=== PATIENT | male | born 1935 | race Caucasian/White ===

== ENCOUNTER 2016-10-19 12:30 | Inpatient (IN) | payer MEDICARE, BC ==
[~2016-10-19] VITALS: Ht 181.6 cm; Wt 108.3 kg
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
--- NOTE | ~2016-10-19 | DS ---
PATIENT'S NAME: CHUY MCCLELLAN [facility] AGE: 81 Y [address] ROOM: [address] [address] LOCATION: [facility] [place] ADMIT DATE: 10/19/2016 Discharge Summary DISCHARGE DATE: 10/25/2016 FAMILY PHYSICIAN: Hasmukh Strong MD ATTENDING PHYSICIAN: Juanita PICKARD PRINCIPAL DIAGNOSIS: Biliary pancreatitis. SECONDARY DIAGNOSES: Acute kidney injury and chronic kidney disease, stage 3; heart failure with preserved ejection fraction, acute exacerbation present under admission aortic stenosis, atrial fibrillation, and intermediate anticoagulation. PROCEDURES DONE DURING THE COURSE OF THE HOSPITALIZATION: 1. Laparoscopic cholecystectomy. 2. ERCP. HOSPITAL COURSE: An 81-year-old very pleasant gentleman with a past medical history of atrial fibrillation on Xarelto, hypertension, chronic kidney disease stage III, history of TIA, presented from [facility] with abdominal pain. On admission, the diagnosis of pancreatitis was made given the pain as well as elevated lipase levels. Abdominal ultrasonography was done, which did show evidence of obstruction. ERCP was done after consulting gastroenterology. General Surgery was consulted and the patient underwent laparoscopic cholecystectomy. Postoperative course was complicated with hypoxia, which was said to be secondary to volume overload given his heart failure with preserved ejection fraction. He was diuresed in the hospital with resolution of his hypoxia and he was re-monitored on the day of the discharge. We did do echocardiography in the hospital, which did show ejection fraction of 50 to 55%, severe pulmonary hypertension, and of note, he does have moderate aortic stenosis with valve area of 1 cm2. CAT scan done in the hospital on admission showed small cholelithiasis without acute inflammation or biliary dilatation. No evidence of pancreatitis at that time. Ultrasound done on admission showed small volume cholelithiasis without evidence of acute cholecystitis or bile duct stone. FOLLOWUP: The patient was advised to follow up with the primary care physician in 3 days with BMP. He was advised to take double the dose of Lasix, which would be 40 mg for 2 days and then go back to normal dose of 20 mg. He was advised to see his [employer] Former Machine Operator, Dr. Mancia who comes to [place]. DISCHARGE MEDICATIONS: Include, PATIENT'S NAME: CHUY MCCLELLAN [facility] AGE: 81 Y [address] ROOM: [address] [address] LOCATION: [facility] [place] ADMIT DATE: 10/19/2016 Discharge Summary DISCHARGE DATE: 10/25/2016 FAMILY PHYSICIAN: Hasmukh Strong MD ATTENDING PHYSICIAN: Juanita PICKARD 1. Cefdinir 300 mg p.o. twice daily for 3 more days. 2. Digoxin 125 mcg p.o. every day. 3. Aspirin 81 mg p.o. every day. 4. Metoprolol 25 mg p.o. twice daily. 5. Bromelain 1000 mg p.o. 3 times daily. 6. Losartan. 7. Potassium 50 mg p.o. every day. 8. Lasix 20 mg p.o. every day. 9. Loratadine 10 mg p.o. every day. 10. Multivitamin 1 tablet p.o. 3 times daily. 11. Mometasone one spray nose every day. 12. Potassium chloride 99 mg p.o. every day. 13. Lactobacillus one capsule p.o. every day. 14. Gray oil one capsule p.o. every day. 15. Vitamin B12 3 times daily. 16. Cholecalciferol 5000 units p.o. every day. 17. Rivaroxaban 20 mg p.o. every day. 18. Taurine 500 mg p.o. 3 times daily. New medication is Omnicef 300 mg p.o. b.i.d. for 3 more days. ACTIVITY: As tolerated. DIET: Low-sodium diet. FOLLOWUP: Follow up with primary care physician in 3 days and margin analyst in two weeks. MD TERRIE MENDOZA/regino /[id number] d: 10/26/16 0134 t: 11/02/16 1313, DISCHARGE SUMMARY
--- NOTE | ~2016-10-19 | OR ---
PATIENT'S NAME: CHUY MCCLELLAN [facility] AGE: 81 Y [address] ROOM: [place] [address] [place] [facility] [place] DATE: 10/19/2016 OR/Procedure Report DISCHARGE DATE: FAMILY PHYSICIAN: Hasmukh Strong MD ATTENDING PHYSICIAN: Juanita PICKARD SURGEON: Ronni Plascencia MD CIVIL DRAFTER: Jeff Nichols PA-C. DATE OF PROCEDURE: 10/23/2016 PREOPERATIVE DIAGNOSES: 1. Cholelithiasis. 2. Resolving biliary pancreatitis. 3. Umbilical hernia. POSTOPERATIVE DIAGNOSES: 1. Cholelithiasis. 2. Resolving biliary pancreatitis. 3. Umbilical hernia. PROCEDURE PERFORMED: Laparoscopic cholecystectomy. ANESTHESIA: General endotracheal. ESTIMATED BLOOD LOSS: 50 mL. SPECIMEN: Gallbladder. REASON FOR PROCEDURE: The patient is an 81-year-old gentleman, who was admitted with an abrupt onset of abdominal pain several days ago. He had his Xarelto held and eventually had a workup showing biliary pancreatitis. He has been gradually recovering from this. Yesterday, he had an endoscopic ultrasound and ERCP with sphincterotomy. We elected to proceed with cholecystectomy during this admission. The risks and benefits were all discussed. FINDINGS: The patient had a slightly dilated common bile duct. There was considerable inflammation around the gallbladder, and it was a fairly difficult cholecystectomy. We did have a little more oozing of blood to normal, but no major bleeding difficulties. PROCEDURE IN DETAIL: The patient was taken to the operating suite and placed in the supine position. After general endotracheal anesthesia was obtained, the abdomen was prepped with ChloraPrep and sterilely draped. Marcaine with epinephrine was injected into the incision sites. A 3 cm infraumbilical incision was made. This was extended down to the hernia sac. The hernia sac PATIENT'S NAME: CHUY MCCLELLAN [facility] AGE: 81 Y [address] ROOM: [place] [address] LOCATION: [facility] [place] ADMIT DATE: 10/19/2016 OR/Procedure Report DISCHARGE DATE: FAMILY PHYSICIAN: Hasmukh Strong MD ATTENDING PHYSICIAN: Juanita PICKARD was mobilized and resected. An 11 mm trocar was then passed through the fascial defect. Pneumoperitoneum was then obtained. Three 5 mm subcostal trocars were placed under direct visualization. The patient's colon was markedly distended from air and made visualization more difficult. The fundus of the gallbladder was grasped and elevated. A second grasper was placed near the infundibulum. The patient had a lot of inflammation and even some edema along the gallbladder, presumably related to the pancreatitis. The gallbladder was folded on itself, and the infundibulum was stuck to the body of the gallbladder. We carefully dissected through this area to expose the anatomy clearly. We were able to staple and divide the cystic artery with clips. There was some generalized oozing from adhesions and the dissection, but no major bleeding point ever seen. Once we were able to dissect the cystic duct fully and feel comfortable with the anatomy, we clipped this proximally and distally. The clips just barely fit across the cystic duct. We did divide it with cautery at the end. The gallbladder was then mobilized free off the liver bed. This was a fairly difficult mobilization just because of chronic inflammation. Once fully mobilized, the gallbladder was placed in an Endo retrieval bag and brought out from the umbilicus. We then washed out the right upper quadrant multiple times and all irrigation was removed. The liver bed appeared to be fairly dry. There were no signs of any ongoing bleeding or bile leak. The trocars were withdrawn, and the pneumoperitoneum was evacuated. The fascial defect where the hernia was at the umbilicus was closed with a [id number] 0 Prolene suture. The skin incisions were all closed with subcuticular Monocryl. Benzoin, Steri-Strips, and gauze dressings were applied. POSTPROCEDURE PLAN: The patient will be sent to recovery and then back to the floor. We will gradually advance his diet as tolerated. We will plan on rechecking his lab work in the morning. We will probably hold his blood thinners for a couple of days because of the bleeding encountered. MD MARTY ROBLES/regino /[id number] d: 10/23/164 t: 10/27/16 1400, OPERATIVE SUMMARY
--- NOTE | ~2016-10-19 | CON ---
PATIENT'S NAME: CHUY MCCLELLAN [facility] AGE: 81 Y [address] ROOM: [place] [address] [place] [facility] [place] DATE: 10/19/2016 Consultation DISCHARGE DATE: FAMILY PHYSICIAN: Hasmukh Strong MD ATTENDING PHYSICIAN: Juanita PICKARD REFERRING PHYSICIAN: Ronni Plascencia MD This is an 81-year-old male. Subjectively, he is feeling well. He has been off Xarelto. He is planned to have ERCP tomorrow. We will do EUS before the ERCP to evaluate his biliary tree and pancreas. His enzymes are improving. His bowel sounds are okay. MD DAJUAN GAMINO/regino /[id number] d: 10/21/16 1630 t: 10/22/16 1034, CONSULTATION REPORT
--- NOTE | ~2016-10-19 | HP ---
PATIENT'S NAME: CHUY MCCLELLAN [facility] AGE: 81 Y [address] ROOM: [place] [address] LOCATION: [facility] [place] ADMIT DATE: 10/19/2016 History & Physical DISCHARGE DATE: FAMILY PHYSICIAN: Hasmukh Strong MD ATTENDING PHYSICIAN: Juanita PICKARD DATE OF SERVICE: CHIEF COMPLAINT: Pancreatitis. HISTORY OF PRESENT ILLNESS: The patient is an 81-year-old gentleman with history of atrial fibrillation, on Xarelto, hypertension, chronic kidney disease stage 3, and history of TIA, who presents here from [facility] with pancreatitis. The patient reports that this Thursday, he experienced acute abdominal pain, which he rates the abdominal pain as severe and diffuse in nature but mostly in the epigastric area. Abdominal pain was aching and burning in quality and was associated with nausea and vomiting. He reports that nausea and vomitus was nonbloody, and he had 3 episodes of nausea and vomiting. The patient went to [facility] and was admitted for pancreatitis as lipase was elevated. Imaging was not done due to lack of imaging during weekend. Initial lipase was greater than what can be calculated, which is 8000. On initial day, his bilirubin and alkaline phosphatase were normal. However, on the second day, the patient's bilirubin was elevated to 2.1 with also mild elevation of alkaline phosphatase. The patient was sent here for possibility of gallstone pancreatitis and for possible ERCP. MEDICAL HISTORY: 1. Atrial fibrillation, persistent. 2. Hypertension. 3. CKD stage 3. 4. History of TIA. FAMILY HISTORY: Mother has Hodgkin's disease. Sister has uterine cancer and father has a throat cancer. SOCIAL HISTORY: Denies smoking. Denies drinking, and the patient is a gutiérrez. MEDICATIONS: Currently being reconciled. REVIEW OF SYSTEMS: PATIENT'S NAME: CHUY MCCLELLAN [facility] AGE: 81 Y [address] ROOM: [place] [address] LOCATION: [facility] [place] ADMIT DATE: 10/19/2016 History & Physical DISCHARGE DATE: FAMILY PHYSICIAN: Hasmukh Strong MD ATTENDING PHYSICIAN: Juanita PICKARD All systems have been reviewed and are negative except for what I mentioned in the HPI. PHYSICAL EXAMINATION: VITAL SIGNS: Temperature 97.4, blood pressure 133/73, heart rate of 88, saturating 92% on room air. GENERAL APPEARANCE: The patient is sitting on the chair, in no acute distress. EYES: Sclerae nonicteric. Extraocular muscle intact. NOSE: No nasal discharge. HEAD: Normocephalic, atraumatic. EARS: No discharge. CHEST: Clear to auscultation bilaterally. HEART: Irregularly irregular. Grade 2 systolic murmur heard. ABDOMEN: Soft, nondistended, however, has mild epigastric tenderness to palpation. Negative Perez sign. Bowel sounds present. SKIN: Warm to touch. EXTREMITIES: No edema. MUSCULOSKELETAL: Range of motion intact. No obvious effusion noted. CHANGE MANAGEMENT FACILITATOR: Alert and oriented x3. Motor and sensory grossly intact. LABORATORY DATA: Currently does not have labs from here, but the lab from outside hospital shows alkaline phosphatase of 105, total bilirubin of 2.1. White blood cell count of 12.3, hemoglobin of 14.9, platelet of 153. Sodium of 143, potassium 4.4, creatinine of 1.6, CO2 of 27, and BUN of 21, with blood glucose of 134. ASSESSMENT AND PLAN: 1. Acute pancreatitis. The patient denies history of alcohol use, suspicious for gallstone pancreatitis. We will acquire right upper quadrant ultrasound, and CT abdomen. We will continue LR 200 mL an hour. We will keep the patient n.p.o. and pain management. We will acquire LFTs and lipase daily. GI was consulted and discussed the case with Dr. Salcido. We will hold EGD with ERCP for now as the patient currently is on Xarelto and last Xarelto dose was today. Holding Xarelto for possible EGD or ERCP if needed within 48 hours of holding Xarelto. 2. Atrial fibrillation, persistent. Holding Xarelto due to above reasons. We will continue beta-chris. 3. Hypertension. Stable. Continue Lopressor. Holding losartan for now for possible drug-associated pancreatitis. 4. Chronic kidney disease stage 3, stable. Creatinine 1.6. Baseline creatinine in the past has been 1.5. 5. History of transient ischemic attack. Continue aspirin. 6. Abdominal pain. Pain management. Greater than 60 minutes was spent on the patient care. Assessment and plan PATIENT'S NAME: CHUY MCCLELLAN [facility] AGE: 81 Y [address] ROOM: [address] [address] LOCATION: [facility] [place] ADMIT DATE: 10/19/2016 History & Physical DISCHARGE DATE: FAMILY PHYSICIAN: Hasmukh Strong MD ATTENDING PHYSICIAN: Juanita PICKARD was discussed with Dr. Salcido, nursing staff, and patient and the patient's daughter. Questions were answered with satisfactory. We will admit the patient for acute pancreatitis with possible gallstone pancreatitis. Discussed with the patient and family about holding Xarelto risks and benefits. Family understands. MD ANA CRISTINA GRANT/regino /[id number] D: [id number] T: [id number] HISTORY & PHYSICAL
--- NOTE | ~2016-10-19 | CON ---
PATIENT'S NAME: [facility] AGE: 81 Y [address] ROOM: G3219 [place], [place] [address] LOCATION: [facility] ADMIT DATE: 10/19/2016 Consultation DISCHARGE DATE: FAMILY PHYSICIAN: Hasmukh Strong MD ATTENDING PHYSICIAN: Juanita PICKARD HISTORY OF PRESENT ILLNESS: This is an 81-year-old gentleman who was admitted through the emergency room today with severe upper abdominal pain with presumptive diagnosis of acute pancreatitis. After Conner called me for assumption, he said that the patient was having pain since Thursday morning when he went to the family physician, Dr. Hutson, and he was given morphine with positive relief of pain and later on, he was at home and again he developed severe pain when he was admitted to the hospital under care of Dr. Hutson in [place]. I have a note from Dr. Hutson, it stated that the patient had twice pain in the upper abdomen. He has a history of sludge and stones in the gallbladder. He denies any history of alcohol. He was found to have severely elevated lipase and liver function tests. He was admitted with pancreatitis in [place]. They did not have the facility of the CT scan and imaging and ERCP; therefore, he was referred to [facility] for higher care. I have reports from [facility], which showed that his alkaline phosphatase was 105. Electrolytes were normal. Calcium was normal. His hemoglobin was 14.9, his WBC count here in this hospital is 13,200, and platelet count is 157,000. Hemoglobin is 13.8 g. Neutrophil is 62.5%. Prothrombin time 11.3 and INR is 1.1. ESR is 5. His pO2 was 50, HCO3 was 30, pCO2 was 44, and pH of 7.45. I am not sure if the blood was arterial. His chloride was 112, glucose 122, and creatinine 1.5 with BUN of 22. ALT was 64, AST was 54, alkaline phosphatase 106. Magnesium 2.3. Cholesterol 217. His lipase was 5582 and amylase was 230. MEDICATIONS: He is on is as per ALEX; however, the list sent from [place] included: 1. Cozaar. 2. Klor-Con tablet. 3. Lanoxin tablet. 4. Lasix. 5. Lopressor. 6. Morphine injections. 7. Xarelto 10 mg daily. He had a Xarelto yesterday evening. None of the reports is available in the MAR from previous history. PAST MEDICAL HISTORY: He has had atrial fibrillation and has been on Xarelto since 2013. His daughter tells me that he had a gap of going off Xarelto and which he developed a slight stroke and it was then placed back on. Prior to that, he also has been on other blood thinners, she is not sure whether it was Coumadin PATIENT'S NAME: [facility] AGE: 81 Y [address] ROOM: [address] [address] LOCATION: [facility] ADMIT DATE: 10/19/2016 Consultation DISCHARGE DATE: FAMILY PHYSICIAN: Hasmukh Strong MD ATTENDING PHYSICIAN: Juanita PICKARD or not. SOCIAL HISTORY: Denies smoking or alcohol intake. REVIEW OF SYSTEMS: Negative. 10-point review of systems is negative other than mentioned above. PHYSICAL EXAMINATION: GENERAL: An elderly gentleman who is not in acute discomfort. VITAL SIGNS: His blood pressure is 138/92, pulse is 99 per minute, respirations 20 per minute, temperature is 98.7 degrees Fahrenheit. Weight is 107 kg. HEENT: Head; normocephalic, atraumatic. NECK: Supple. No lymphadenopathy. CHEST: Clear to palpation, percussion, and auscultation. CARDIAC EXAMINATION: Both heart sounds normal. No S3 or murmur. ABDOMEN: Soft, it is tender in the left upper quadrant and right upper quadrant, also in the hypogastric area, but there is no rebound tenderness. Bowel sounds are sluggish. There is no rebound tenderness. MUSCULOSKELETAL: He moves all his extremities without any restrictive joint disease. There is no edema of feet. NEUROLOGICAL: Cranial nerves 2-12 intact. Motor sensory system intact. ASSESSMENT AND RECOMMENDATIONS: The patient is an 81-year-old gentleman who was admitted with acute pancreatitis, with elevated lipase and amylase which is associated with a typical pain of pancreatitis. I C reviewed a preliminary view of his CT scan, although the report is not in his chart, which was done here, which shows pancreas is slightly edematous and there is sludge and looked like a stone in the gallbladder. Gallbladder is also enlarged. I do not see any peripancreatic fluid. RECOMMENDATIONS: We will go ahead and proceed with ERCP with clearing of the bile duct; however, the patient was on Xarelto, his last dose yesterday evening; therefore, we will have to wait for at least 48 hours and may be plan for Thursday. In the meantime, he needs to be continued on high volume intravenous hydration and keeping good urine output. We will follow along if there are any further complications. We appreciate sharing care of this patient. PATIENT'S NAME: [facility] AGE: 81 Y [address] ROOM: [place] [address] LOCATION: [facility] ADMIT DATE: 10/19/2016 Consultation DISCHARGE DATE: FAMILY PHYSICIAN: Hasmukh Strong MD ATTENDING PHYSICIAN: Juanita PICKARD MD DAJUAN GAMINO/regino /[id number] d: 10/19/16 232 t: 10/21/16 1504, CONSULTATION REPORT
--- NOTE | ~2016-10-19 | ECHO ---
Transthoracic Echocardiography Report (TTE) Demographics Patient Name CHUY MCCLELLAN Date of Study 10/24/2016 Patient Number [id number] Visit Number [id number] Date of 1935 Room Number G3219 Gender Male Number Age 81 year(s) Referring Simeon Ramirez Director Plans Saadia Lau, Physician RT,RVT,RDCS Physician Interpreting Shashank Leon Seed Cone Picker Physician MD Supervising Ordering Simeon Ramirez MD/MLP Physician MD Nurse Stress Business Intelligence Architect Conclusions Contractility Score Summary Normal Left Ventricular contractility was noted. Summary The estimated left ventricular ejection fraction is 50-55%. RV is mildly dilated, The interventricular septum is flattened which is consistent with right ventricular pressure / and or volume overload. Moderate to severe TR. The left atrium is moderately dilated by LA volume index measurement. Mild concentric left ventricular hypertrophy. The right atrium is moderately dilated. Dilated IVC with poor inspiratory collapse consistent with elevated RA pressure. Mildly dilated right ventricle. Mild calcification of the mitral valve. There is moderate aortic stenosis by the Continuity Equation. The peak velocity is 3.0 m/s, the mean gradient is 18 mmHg, and the valve area based on the continuity equation is 1.0 cm2, stroke volume index is 54 ml/m2. There is moderate aortic regurgitation by color Doppler. There is severe pulmonary hypertension. The pulmonary pressure (RVSP) is 71 mmHg. Procedure Type of Study TTE procedure:2D Echocardiogram, M-Mode, Doppler , Color Doppler. Procedure Date Date: 10/24/2016 Start: 01:57 PM Study Location: Inpatient Portable Technical Quality: Adequate visualization Indications:Heart murmur. Appropriate Use Criteria: 9 Patient Status: Routine HR: 54 bpm BP: 172/61 mmHg Allergies - No known allergies. M-Mode/2D Measurements LV Diastolic Dimension: 4.39 cm LV Systolic Dimension: 3.32 cm LV Septum Diastolic: 1.3 cm LV Septum Systolic: 1.52 cm LV PW Diastolic: 1.17 cm LV PW Systolic: 1.21 cm Cardiac Output: 2.94 l/min AO Root Dimension: 3.3 cm LA Dimension: 4.3 cm EF Estimated: 50 % LA volume: 98 ml RV Base: 4.5 cm LVOT: 2.3 cm RV Mid: 3.3 cm LVOT VTI: 13.1 cm RV Length: 6 cm LV Stroke volume: 54.4 ml TDI-S': 12.5 cm/s Doppler Measurements AV Peak Velocity: 3 m/s MV Peak E-Wave: 1.32 m/s AV Peak Gradient: 36 mmHg AV Mean Gradient: 18 mmHg MV P1/2t: 47 msec LVOT Peak Velocity: 0.76 m/s TR Velocity:2.51 m/s PV Peak Velocity: 1.01 m/s TR Gradient:25.2 mmHg PV Peak Gradient: 4.08 mmHg Estimated RAP:10 mmHg Estimated PASP: 35.2 mmHg Estimated RVSP: 35 mmHg E' Septal Velocity: 0.08 m/s MV E/E' Ratio: 16.9 Findings Left Ventricle Mild concentric left ventricular hypertrophy. The interventricular septum is flattened which is consistent with right ventricular pressure / and or volume overload. Right Ventricle Mildly dilated right ventricle. Left Atrium The left atrium is moderately dilated by LA volume index measurement. Right Atrium The right atrium is moderately dilated. Dilated IVC with poor inspiratory collapse consistent with elevated RA pressure. IVC measures 2.4 cms. Mitral Valve Mild calcification of the mitral valve. Aortic Valve There is moderate aortic stenosis by the Continuity Equation. The peak velocity is 3.0 m/s, the mean gradient is 18 mmHg, and the valve area based on the continuity equation is 1.0 cm2, stroke volume index is 54 ml/m2. There is mild to moderate aortic regurgitation by color Doppler. Tricuspid Valve There is severe pulmonary hypertension. The pulmonary pressure (RVSP) is 71 mmHg. Moderate to severe tricuspid regurgitation by color Doppler. Pulmonic Valve Normal pulmonic valve structure and function. Pericardial Effusion No evidence of pericardial effusion. Miscellaneous Visualized portions of the aortic root and ascending aorta appear normal in size. Pleural Effusion No evidence of pleural effusion. Contractility Score LV regional wall motion:(0-Non visualized 1-Normal 2-Hypokinesis 3-Akinesis 4-Dyskinesis 5-Aneurysm) Signature dtt: SCOTT SHARPE dtd: 10/24/16 1357 Physician Self Edit
[2016-10-19] MEDS ORDERED: ASPIRIN LO-DOSE81 MG PO (14:48)
[2016-10-19] MEDS ORDERED: BROMELAINS500 MG PO (14:48)
[2016-10-19] MEDS ORDERED: COZAAR50 MG PO (14:49)
[2016-10-19] MEDS ORDERED: LANOXIN (DIGI125 MCG PO (14:49)
[2016-10-19] MEDS ORDERED: CLARITIN10 MG PO (14:50)
[2016-10-19] MEDS ORDERED: LASIX20 MG PO (14:50)
[2016-10-19] MEDS ORDERED: LOPRESSOR25 MG PO (14:51)
[2016-10-19] MEDS ORDERED: THERAGRAN-M1 TAB PO (14:51)
[2016-10-19] MEDS ORDERED: NASONEX NASAL S17 GM NOSE (14:52)
[2016-10-19] MEDS ORDERED: POTASSIUM99 M1 PO (14:52)
[2016-10-19] MEDS ORDERED: SALMON OIL 1,01 EACH PO (14:53)
[2016-10-19] MEDS ORDERED: PROBIOTIC1 EAC1 PO (14:53)
[2016-10-19] MEDS ORDERED: BALANCE B-501 EACH PO (14:54)
[2016-10-19 14:56] LABS: BASOPHIL % 0.2 %; EOSINOPHIL % 0.1 %; HEMATOCRIT 42.2 % (33.0-50.0); HEMOGLOBIN 13.8 g/dL (11.0-16.0); IMMATURE GRANULOCYTE % 0.3 %; LYMPHOCYTE # 3.6 K/uL (0.8-4.0); LYMPHOCYTE % 27.5 %; MCH 31.7 pg (27.0-34.0); MCHC 32.7 gm/dL (32.0-36.5); MONOCYTE # 1.3 K/uL (0.0-1.0); MONOCYTE % 9.4 %; MPV 9.9 fl (9.4-12.4); NEUTROPHIL # (ANC) 8.3 K/uL (1.4-9.0); NEUTROPHIL % 62.5 %; NRBC % 0 /100WBC (0-0.00); PLATELET COUNT 157 K/uL (150-450); RBC 4.35 M/uL (3.50-5.50); RDW-CV 15.2 % (11.9-14.6); WBC 13.2 K/uL (4.0-11.0)
[2016-10-19] MEDS ORDERED: XARELTO20 MG PO (14:56)
[2016-10-19] MEDS ORDERED: VITAMIN D35000 UNI1 PO (14:56)
[2016-10-19] MEDS ORDERED: WHEAT GERM OIL PO (14:56)
[2016-10-19] MEDS ORDERED: PURE TAURINE500 MG PO (14:57)
[2016-10-19 15:14] LABS: ALBUMIN 3.1 gm/dL (3.5-5.0); ANION GAP 12.3 (10.0-19.0); CALCIUM 8.6 mg/dL (8.5-10.5); CREATININE 1.5 mg/dL (0.6-1.3); POTASSIUM 4.3 mMol/L (3.7-5.1); TOTAL BILIRUBIN 1.3 mg/dL (0.0-1.5); TOTAL PROTEIN 7.1 g/dL (6.0-8.4)
--- NOTE | 2016-10-19 19:16 | NUR ---
Admission note: Pt arrived per private vehicle from the [facility]. Patient is alert and oriented. VSS. ON room air. Has IV to right AC, saline locked with good blood return. Does not currently have any pain, had morphine before leaving [facility]. Admitted there for abdominal pain, nausea, vomiting, diarrhea. Dx with gallstone pancreatitis. Has a hx of stones, CVA with no residual affects, Diabetes Type II, and Atrial fib. Is on telemetry. Has a bruise to left arm from attempted IV access. Has venous staining bilateral legs and feet. No complaints of nausea, vomiting, or diarrhea. [place] Is allergic to tape. Ambulates stand by assist-independently. Plans for ultrasound, Ct abd/pelvis, labs, consult GI. Jamie Dawson at bedside.
--- NOTE | 2016-10-20 04:22 | NUR ---
Significant Event:pt is a/o x3. pt will have ercp on thursday morning. pt npo w/ meds. pt is a sba. iv to r ac from [facility] has lr @ 200ml/hr. pt on tele w/ no calls. pt wears c-pap @ noc. pt has heart murmur and hx of a-fib. pt hypertensive at times. pt only had 275ml uop, dr abernathy notified, not worried at this time. Follow up:continue to monitor uop.
[2016-10-20 05:20] LABS: BASOPHIL % 0.2 %; EOSINOPHIL # 0.1 K/uL (0.0-0.5); EOSINOPHIL % 0.6 %; HEMATOCRIT 39.7 % (33.0-50.0); HEMOGLOBIN 12.7 g/dL (11.0-16.0); IMMATURE GRANULOCYTE % 0.2 %; LYMPHOCYTE # 3.8 K/uL (0.8-4.0); LYMPHOCYTE % 37.9 %; MCH 31.1 pg (27.0-34.0); MCV 97.3 fl (83.0-98.0); MONOCYTE # 1.1 K/uL (0.0-1.0); MPV 9.6 fl (9.4-12.4); NEUTROPHIL % 50.1 %; NRBC % 0 /100WBC (0-0.00); PLATELET COUNT 143 K/uL (150-450); RBC 4.08 M/uL (3.50-5.50); RDW-CV 15.4 % (11.9-14.6)
[2016-10-20 05:47] LABS: ALBUMIN 2.6 gm/dL (3.5-5.0); ANION GAP 12.2 (10.0-19.0); CALCIUM 8.4 mg/dL (8.5-10.5); CREATININE 1.3 mg/dL (0.6-1.3); POTASSIUM 4.2 mMol/L (3.7-5.1); TOTAL BILIRUBIN 1.2 mg/dL (0.0-1.5); TOTAL PROTEIN 6.1 g/dL (6.0-8.4)
--- NOTE | 2016-10-20 13:26 | NUR ---
Significant Event: Patient up and showered this a.m. Dr. Salcido in and advanced diet to clear liquids and patient has tolerated well. Denies nausea. Abdominal pain at a 2. Up with standby assist. IV fluids continue at 200 ml/hour and patient at home takes lasix 20 mg PO daily but has not been reordered here due to patient having some dehydration when he came in. Will talk with hospitalist on rounds. Patient also talked with Dr. Salcido about ERCP which is now scheduled for . and patient in agreement that if gall bladder needs to come out he is ok with that happening. Dr. Salcido said to have hospitalist order consult for surgery. Follow up: Continue to monitor. Follow-up with hospitalist on rounds regarding fluid volume status and surgery consult.
--- NOTE | 2016-10-21 05:06 | NUR ---
Significant Event: Standby assist. Denies pain. Voids without difficulty. CPAP. On tele with no calls. On room air. Follow up:
[2016-10-21 06:15] LABS: BASOPHIL % 0.2 %; EOSINOPHIL # 0.1 K/uL (0.0-0.5); EOSINOPHIL % 0.8 %; HEMATOCRIT 40.5 % (33.0-50.0); IMMATURE GRANULOCYTE % 0.2 %; LYMPHOCYTE # 3.9 K/uL (0.8-4.0); LYMPHOCYTE % 41.2 %; MCHC 32.1 gm/dL (32.0-36.5); MCV 96.4 fl (83.0-98.0); MONOCYTE # 0.9 K/uL (0.0-1.0); MONOCYTE % 9.3 %; MPV 9.7 fl (9.4-12.4); NEUTROPHIL # (ANC) 4.6 K/uL (1.4-9.0); NEUTROPHIL % 48.3 %; NRBC % 0 /100WBC (0-0.00); PLATELET COUNT 139 K/uL (150-450); RDW-CV 14.6 % (11.9-14.6); WBC 9.5 K/uL (4.0-11.0)
[2016-10-21 06:30] LABS: ALBUMIN 2.6 gm/dL (3.5-5.0); CALCIUM 8.5 mg/dL (8.5-10.5); CREATININE 1.2 mg/dL (0.6-1.3); TOTAL BILIRUBIN 1.1 mg/dL (0.0-1.5); TOTAL PROTEIN 6.4 g/dL (6.0-8.4)
--- NOTE | 2016-10-21 15:00 | NUR ---
Introduced self/role to patient and his Miya, they live in [place]. Denied any barriers to discharge or at home at this point. Hoping to go home on Thursday. Added my name to his marker board, will continue to follow.
--- NOTE | 2016-10-21 15:39 | NUR ---
Attempted to see pt at 1530 today. Nurse in administering medication as pt's BP was 202/99. Will hold therapy this afternoon as not to raise BP anymore and reassess pt in the am. Lucie Logan, PT
--- NOTE | 2016-10-21 17:09 | NUR ---
Significant Event:Is A/O.Has SL in Rt.upper arm.Has been up with walker & 1 assist.Had episode around 1430 where he began shaking uncontrolably & c/o sl.headache.B/P was very elevated & O2 sats were dropping.O2 put on 2L/NC & MS 1mg given IV at 1445. notified,orders recieved.Hydralazine 10mg was given IV at 1530.B/P was 185/91 at 1537.B/P was 162/98 at 1645.Voiding ok & had sm.stool. Follow up:
--- NOTE | 2016-10-21 23:41 | NUR ---
Significant Event: AFEBRILE. HR 110, RESP 36, 02 92% ON RA, BP 154/95. PATIENT COMPLAINED OF A HEADACHE EARLIER THIS SHIFT WHICH HE RATED AT A 3 ON A 0-10 SCALE. MORPHINE WAS GIVEN VIA IV AT 2014. PATIENT LATER RATED HIS PAIN AT A 1. PATIENT HAS HAD 3 VOIDS THIS SHIFT. HE WILL USE THE URINAL NEXT TO HIS CHAIR OR BEDSIDE FOR URINARY URGENCY. HE ALSO GETS UP TO THE BATHROOM WITH STANDBY ASSIST. HIS HAS BEEN IN THE ROOM FOR THE ENTIRETY OF THE SHIFT. PATIENT WILL BE NPO BEGINNING AT 0000 TONIGHT FOR AN ERCP IN THE AM. Follow up:
--- NOTE | 2016-10-21 23:50 | NUR ---
Charting and assessments reviewed and agreed upon for SN. Vikki Morgan from [id number]. Ashley Rodriguez, RN, CPN
--- NOTE | 2016-10-22 04:44 | NUR ---
Significant Event: PATIENT SLEPT WELL. RATES PAIN 2/10 AND DENIES ADDITIONAL PAIN MEDICATION. CONSENTS SIGNED FOR PROCEDURE TODAY. SPOUSE AT BEDSDIE THROUGHOUT NIGHT. Follow up:1
[2016-10-22 06:11] LABS: BASOPHIL % 0.2 %; EOSINOPHIL % 0.2 %; HEMATOCRIT 38.2 % (33.0-50.0); HEMOGLOBIN 12.7 g/dL (11.0-16.0); IMMATURE GRANULOCYTE % 0.3 %; LYMPHOCYTE # 3.1 K/uL (0.8-4.0); LYMPHOCYTE % 25.1 %; MCH 31.3 pg (27.0-34.0); MCHC 33.2 gm/dL (32.0-36.5); MCV 94.1 fl (83.0-98.0); MONOCYTE # 0.8 K/uL (0.0-1.0); MONOCYTE % 6.6 %; MPV 9.2 fl (9.4-12.4); NEUTROPHIL # (ANC) 8.3 K/uL (1.4-9.0); NEUTROPHIL % 67.6 %; NRBC % 0 /100WBC (0-0.00); PLATELET COUNT 135 K/uL (150-450); RBC 4.06 M/uL (3.50-5.50); RDW-CV 14.7 % (11.9-14.6); WBC 12.2 K/uL (4.0-11.0)
[2016-10-22 06:28] LABS: ALBUMIN 2.5 gm/dL (3.5-5.0); ANION GAP 10.9 (10.0-19.0); CALCIUM 8.2 mg/dL (8.5-10.5); CREATININE 1.4 mg/dL (0.6-1.3); POTASSIUM 3.9 mMol/L (3.7-5.1); TOTAL BILIRUBIN 1.3 mg/dL (0.0-1.5); TOTAL PROTEIN 6.2 g/dL (6.0-8.4)
--- NOTE | 2016-10-22 17:06 | NUR ---
Significant event: Had ERCP today. Denies pain. Up in gasca ambulating with assist, gait steady. Weaned to room air. technical project coordinator called nurse and reported heart rate was in 50's and 40's for short time. Checked patient and he was up in chair sleeoing did wake and denied pain and alert and oriented. Heart rate then 63 skin warm and dry.
--- NOTE | 2016-10-23 04:09 | NUR ---
Significant Event:pt is a/o x3. pt is npo for lap kacie today. pt has iv to r hand w/ ns@100. pt on tele w/ no calls for a-fib. vss no c/o pain. pt uses c-pap @ noc, otherwise ra. pt is a sba to 1 assist as he has been using the walker. pt is a little unsteady on his feet. Follow up:surgery today.
[2016-10-23 05:30] LABS: BASOPHIL % 0.2 %; EOSINOPHIL # 0.1 K/uL (0.0-0.5); EOSINOPHIL % 0.8 %; HEMATOCRIT 35.6 % (33.0-50.0); HEMOGLOBIN 11.8 g/dL (11.0-16.0); IMMATURE GRANULOCYTE % 0.4 %; LYMPHOCYTE # 2.3 K/uL (0.8-4.0); LYMPHOCYTE % 24.3 %; MCH 31.3 pg (27.0-34.0); MCHC 33.1 gm/dL (32.0-36.5); MCV 94.4 fl (83.0-98.0); MONOCYTE # 0.7 K/uL (0.0-1.0); MPV 9.5 fl (9.4-12.4); NEUTROPHIL # (ANC) 6.3 K/uL (1.4-9.0); NEUTROPHIL % 67.3 %; NRBC % 0 /100WBC (0-0.00); PLATELET COUNT 114 K/uL (150-450); RBC 3.77 M/uL (3.50-5.50); RDW-CV 14.8 % (11.9-14.6); WBC 9.4 K/uL (4.0-11.0)
[2016-10-23 05:48] LABS: ALBUMIN 2.2 gm/dL (3.5-5.0); POTASSIUM 3.8 mMol/L (3.7-5.1); TOTAL PROTEIN 5.5 g/dL (6.0-8.4)
[2016-10-23 05:50] LABS: ANION GAP 15.8 (10.0-19.0); CALCIUM 7.4 mg/dL (8.5-10.5); CREATININE 16.8 mg/dL (0.6-1.3); TOTAL BILIRUBIN 0.8 mg/dL (0.0-1.5)
[2016-10-23 08:18] LABS: ALBUMIN 2.5 gm/dL (3.5-5.0); ANION GAP 11.1 (10.0-19.0); CREATININE 1.7 mg/dL (0.6-1.3); POTASSIUM 4.1 mMol/L (3.7-5.1); TOTAL PROTEIN 6.3 g/dL (6.0-8.4)
--- NOTE | 2016-10-23 08:55 | NUR ---
A-SCREENED D/T LOS ADMITTED FOR ABD PAIN, N/V/D. 10/22-ERCP. TO OR FOR LAP ABAD TODAY HT: 71.5 IN. WT: 96.8 KG. BMI: 29.3 LABS: NA 142, K+ 4.1, GLU 128, BUN 20, LAND USE PLANNER 1.7, ALB 2.5 MEDS: MEFOXIN, APRESOLINE, COLACE, PROTONIX, MORPHINE DIET RX: SOFT DIET. PO INTAKE HAS BEEN 75-100% WHEN NOT NPO EST NUTR. NEEDS: [id number] KCALS (20-25 KCALS/KG) 77-106 GM PROTEIN (0.8-1.1 GM/KG) 1 ML FLUID/KCAL D-NOT AT NUTRITION RISK;NO NUTRITION DX IDENTIFIED I-DIET APPROPRIATE S/P LAP ABAD M/E-WILL ASSIST NEEDED
--- NOTE | 2016-10-23 16:02 | NUR ---
Significant event: Laprascopic sites dry and intact times 4. Up in gasca ambulating with 2 assist, returned to room and supervisor pyrotechnic loading called and reported heart rate up to 130's, returned to 86 shortly after sitting in chair. Continues on 2 liters of Oxygen, including while ambulating does get short of breath with activity. Using incentive spirometer. Tolerating clear liquids. Had [place] in PACU and morphine at 1426.
--- NOTE | 2016-10-23 22:26 | NUR ---
Significant Event: I CARED FOR THIS PATIENT FROM [id number]. HE IS POST OP LAP ABAD OF TODAY. DENIES PAIN OR NEED FOR MEDICATIONS. HAS AMBULATED TO BR AND BEEN UP IN CHAIR WITH LEG PUMPS ON FOR SEVERAL HOURS. ORAL CARES GIVEN. ALBUMIN AND BUMEX WERE GIVEN THIS EVENING. HAND AND ANKLE EDEMA OF 2+. IV LEAKING AND DC'D. PATIENT STARTED ON PO OMNICEF AT 2230. DRESSINGS TO LAP SITES X4 REMAIN INTACT. Follow up: CONTINUE TO MONITOR TONIGHT
--- NOTE | 2016-10-24 04:12 | NUR ---
Significant Event:pt a/o x3. pt has no iv access. 1 l on @ noc w/ c-pap, need to wean to ra during the day. plan for possible discharge home today. vss. no c/o pain, no prn meds given. Follow up:possible discharge home today.
[2016-10-24 06:06] LABS: BASOPHIL % 0.1 %; HEMATOCRIT 35.3 % (33.0-50.0); HEMOGLOBIN 11.6 g/dL (11.0-16.0); IMMATURE GRANULOCYTE # 0.1 K/uL (0.0-0.3); IMMATURE GRANULOCYTE % 0.6 %; LYMPHOCYTE # 1.8 K/uL (0.8-4.0); LYMPHOCYTE % 14.2 %; MCH 31.1 pg (27.0-34.0); MCHC 32.9 gm/dL (32.0-36.5); MCV 94.6 fl (83.0-98.0); MONOCYTE # 0.7 K/uL (0.0-1.0); MONOCYTE % 5.7 %; NEUTROPHIL # (ANC) 10.2 K/uL (1.4-9.0); NEUTROPHIL % 79.4 %; NRBC % 0 /100WBC (0-0.00); PLATELET COUNT 129 K/uL (150-450); RBC 3.73 M/uL (3.50-5.50); WBC 12.8 K/uL (4.0-11.0)
[2016-10-24 06:26] LABS: ALBUMIN 2.5 gm/dL (3.5-5.0); ANION GAP 12.6 (10.0-19.0); CALCIUM 8.1 mg/dL (8.5-10.5); CREATININE 1.4 mg/dL (0.6-1.3); POTASSIUM 4.6 mMol/L (3.7-5.1); TOTAL PROTEIN 6.1 g/dL (6.0-8.4)
[2016-10-24 06:27] LABS: TOTAL BILIRUBIN 0.6 mg/dL (0.0-1.5)
--- NOTE | 2016-10-24 08:05 | NUR ---
Followed up with patient and a daughter. Still denied any barriers to going home or at home. May get to go home tomorrow.
--- NOTE | 2016-10-24 14:40 | NUR ---
Significant event: Patient is alert and oriented x3. Is hypertensive today. NO fevers. Resp 20, complains of shortness of breath, edema noted in arms and legs. Abdomen has 4 stab incisions with dressings intact, umbilical dressing has serosanginoud drainage. Is on regular diet. O2 levels have been greater than 90% throughout the day. Does complain of some pain to right abdomen and shoulder. Encourage to walk, but gets short of breath. New IV or midline to be started so can give Bumex. Daughter at bedside. Cooperative with cares.
--- NOTE | 2016-10-24 19:03 | NUR ---
Assumed cares around 1500- Bumex given as well as hydralazine and norco. Having good output with the bumex. Ambulated in the gasca x1 and is passing gas and states it made him feel better. Power glide in the right upper arm. Cooperative with cares. New walker obtained for the patient for a comfortable height.
--- NOTE | 2016-10-25 03:57 | NUR ---
pt. alert and oriented. VSS. Bipap on while sleeping with 1L of O2. Last norco around 2129. C/O SOB when walking. Edema in hands and feet. Tolerative diet well. Surg. inc x4 to abdomen. Umbilical dressing draining serosanginous. C/O pain in R) Shoulder and R) side of abdomen. Powerglide to R) upper arm. Daughter at bedside. Cooperative with cares.
[2016-10-25 05:38] LABS: BASOPHIL % 0.2 %; EOSINOPHIL # 0.1 K/uL (0.0-0.5); EOSINOPHIL % 0.7 %; HEMATOCRIT 36.5 % (33.0-50.0); IMMATURE GRANULOCYTE # 0.1 K/uL (0.0-0.3); IMMATURE GRANULOCYTE % 0.5 %; LYMPHOCYTE # 4.3 K/uL (0.8-4.0); LYMPHOCYTE % 33.8 %; MCH 31.2 pg (27.0-34.0); MCHC 32.9 gm/dL (32.0-36.5); MCV 94.8 fl (83.0-98.0); MONOCYTE % 7.6 %; MPV 10.1 fl (9.4-12.4); NEUTROPHIL # (ANC) 7.3 K/uL (1.4-9.0); NEUTROPHIL % 57.2 %; NRBC % 0 /100WBC (0-0.00); PLATELET COUNT 146 K/uL (150-450); RBC 3.85 M/uL (3.50-5.50); RDW-CV 15.2 % (11.9-14.6); WBC 12.7 K/uL (4.0-11.0)
[2016-10-25 05:59] LABS: ALBUMIN 2.6 gm/dL (3.5-5.0); ANION GAP 13.8 (10.0-19.0); CALCIUM 8.5 mg/dL (8.5-10.5); CREATININE 1.4 mg/dL (0.6-1.3); POTASSIUM 3.8 mMol/L (3.7-5.1); TOTAL BILIRUBIN 0.5 mg/dL (0.0-1.5); TOTAL PROTEIN 6.3 g/dL (6.0-8.4)
[2016-10-25] MEDS ORDERED: OMNICEF 300MG300 MG PO (14:38)
--- NOTE | 2016-10-25 18:38 | NUR ---
Discharge Summary - Going home with midline in place. Discharge instructions given. Antibiotic medication to fill. Follow-up appointment with primary with labs - CBC. No BM on this shift, butpassing flatus and hyperacitve bowel sounds. Hulbert, 2 tabs, given for pain before left for home.
[2016-11-26] MEDS ORDERED: CHOLESTYRAMINE P4 GM PO (09:55)
[2016-11-26] MEDS ORDERED: BIPAP INH (10:45)
== END 2016-10-25 16:45 | disposition disaster alternative care site (69) | DRG 418 ==
LOC: GMSU 12:30
PROVIDERS: Physician Assistant; Surgery; ADMIT Internal Medicine
PROC: 0F798ZZ Dilation of Common Bile Duct, Via Natural or Artificial Opening Endoscopic (ICD-10-PCS; principal; 2016-10-22)
PROC: 0FT44ZZ Resection of Gallbladder, Percutaneous Endoscopic Approach (ICD-10-PCS; 2016-10-23)
DX: K85.10 Biliary acute pancreatitis without necrosis or infection (principal); N17.9 Acute kidney failure, unspecified; J96.12 Chronic respiratory failure with hypercapnia; I13.0 Hypertensive heart and chronic kidney disease with heart failure and stage 1 through stage 4 chronic kidney disease, or unspecified chronic kidney disease; I48.1 Persistent atrial fibrillation; I27.2 Other secondary pulmonary hypertension; I16.0 Hypertensive urgency; G47.33 Obstructive sleep apnea (adult) (pediatric); N18.3 Chronic kidney disease, stage 3 (moderate); K80.20 Calculus of gallbladder without cholecystitis without obstruction; K42.9 Umbilical hernia without obstruction or gangrene; I35.0 Nonrheumatic aortic (valve) stenosis; Z86.13 Personal history of malaria; Z79.01 Long term (current) use of anticoagulants
CPT/HCPCS: C1751; C1769; C9113; J0360; J0694; J1100; J1644; J2001; J2270; J2405; J7030; J7040; J7120; P9047

== ENCOUNTER 2016-10-30 10:00 | Inpatient (IN) | payer MEDICARE, BC ==
[~2016-10-30] VITALS: Ht 180.3 cm; Wt 100.8 kg
--- NOTE | ~2016-10-30 | CON ---
PATIENT'S NAME: CHUY MCCLELLAN [facility] AGE: 81 Y [address] ROOM: [address] [address] LOCATION: GPCU ADMIT DATE: 10/30/2016 Consultation DISCHARGE DATE: FAMILY PHYSICIAN: Hasmukh Strong MD ATTENDING PHYSICIAN: CASIE TAVAREZ DATE OF CONSULTATION: 10/30/2016 REFERRING PHYSICIAN: Casie Tavarez MD REASON FOR CONSULTATION: Acute GI bleed. HISTORY OF PRESENT ILLNESS: This is a pleasant 81-year-old gentleman with paroxysmal atrial fibrillation, on Xarelto. The patient recently was admitted with acute gallstone pancreatitis status post cholecystectomy and ERCP for possible stone extraction. ERCP was completed on 10/22/2016. At this time, he also underwent an endoscopic ultrasound showing hyperechoic foci consistent with stones that was present in the gallbladder. Bile duct appeared normal. In regard to the patient's ERCP completed on 10/22/2016, normal pancreatogram was seen. Linear gastric erosions were also seen. Common orifice sphincterotomy was performed with balloon sweep with no stone seen. There was biliary sludge present. The patient retreated home and did well. He presented to [facility] emergency Room with complaints of abdominal pain as well as coffee-grounds emesis. He had been placed back on Xarelto for his atrial fibrillation with the last dose approximately 40 hours from the time of admission to [facility]. At the time of presentation in the [facility], he was hemodynamically stable. He had a hemoglobin, which was 13. The following morning the patient noted to have two episodes of bright red bloody bowel movements and was subsequently transferred to [facility]. On arrival, the patient did have another large bloody bowel movement that was noted to be bright red with noted clots. He continues to be hemodynamically stable. The patient's last hemoglobin checked at the outside facility was 10 with a three point drop from his baseline numbers. The patient denies any dizziness, lightheadedness, or chest pain. He does complain of some diffuse abdominal discomfort noted, abdominal bruising as noted to his lower quadrants. He does state that his abdominal pain is specifically in the lower abdomen area. He denies any more hematemesis or coffee-ground like emesis, since the first episode prior to presentation. The patient denies any current chest pain, chest pressure, lightheadedness, dizziness, fever, chills, or shortness of breath. The patient also was noted to have elevated liver enzymes, specifically his ALT and AST from the outside facility. Total bilirubin level was within normal limits. AST was 42, ALT was 542, alkaline phosphatase of 585. Total bilirubin was again within normal limits at that time. PATIENT'S NAME: CHUY MCCLELLAN [facility] AGE: 81 Y [address] ROOM: [address] [address] LOCATION: GPCU ADMIT DATE: 10/30/2016 Consultation DISCHARGE DATE: FAMILY PHYSICIAN: Hasmukh Strong MD ATTENDING PHYSICIAN: CASIE TAVAREZ PAST MEDICAL HISTORY: 1. Paroxysmal atrial fibrillation, on Xarelto. 2. Chronic diastolic congestive heart failure. 3. Hypertension. 4. Hyperlipidemia. 5. Chronic kidney disease stage III. 6. History of TIAs. SOCIAL HISTORY: The patient denies any tobacco, alcohol, or recreational drug use. The patient is a gutiérrez. FAMILY HISTORY: The patient's mother had Hodgkin disease. The patient's sister had uterine cancer. The patient's father had throat cancer. ALLERGIES: NO KNOWN MEDICATION ALLERGIES. CURRENT MEDICATIONS: Please refer to the medication administration record. REVIEW OF SYSTEMS: All point review of systems was completed. All were negative except for those identified in the history of present illness. PHYSICAL EXAMINATION: GENERAL: A pleasant 81-year-old gentleman, who appears to be in no acute distress. VITAL SIGNS: Temperature 98.3, pulse of 98, respirations of 18, blood pressure 172/81, oxygen saturations 95% on room air. SKIN: [place], warm, and dry. No jaundice. HEENT: Head is normocephalic and atraumatic. Pupils are equal, round, and reactive to light. Sclerae are clear. Nonicteric. Oral mucosa is pink and moist. No thyromegaly. NECK: Soft and supple. CARDIOVASCULAR: Regular normal S1 and S2. RESPIRATORY: Respirations even and unlabored. LUNGS: Clear to auscultation. ABDOMEN: Soft, round, tender in the bilateral lower quadrants. No rebound, rigidity, or guarding noted. Noticeable bruising to the lower abdominal area. Bowel sounds positive x4 quadrants. MUSCULOSKELETAL: No muscle weakness or atrophy. EXTREMITIES: No clubbing, cyanosis, or edema. PATIENT'S NAME: CHUY MCCLELLAN [facility] AGE: 81 Y [address] ROOM: [id number] [place], [place] [id number] LOCATION: GPCU ADMIT DATE: 10/30/2016 Consultation DISCHARGE DATE: FAMILY PHYSICIAN: Hasmukh Strong MD ATTENDING PHYSICIAN: CASIE TAVAREZ NEUROLOGICAL: Grossly nonfocal. LABORATORY DATA AND DIAGNOSTICS: Laboratory was reviewed from the outside facility as well as all previous records regarding his endoscopic ultrasound and ERCP in regard to the outside facility labs: Hemoglobin was 10.8. Elevated LFTs with AST of 42, ALT of 542, alkaline phosphatase of 585. Total bilirubin was within normal limits. ASSESSMENT AND PLAN: Again, this is a very pleasant 81-year-old gentleman who is known to our Gastroenterology Services as he recently was admitted with acute gallstone pancreatitis undergoing endoscopic ultrasound, ERCP with sphincterotomy and laparoscopic cholecystectomy. The patient presented to outside facility with coffee ground hematemesis and subsequently had hematochezia. 1. Acute gastrointestinal blood loss. At this time, we will go forth with an upper endoscopy. It appears that the patient had coffee-grounds emesis in the beginning with now bright red blood and acute drop of his hemoglobin. The patient will be evaluated for upper GI bleeding specifically from the sphincterotomy with his recent history of Xarelto. A CT abdomen and pelvis will also be completed prior to this to rule out any other etiologies for possible bleed. 2. Elevated liver enzymes. The patient may need repeat ERCP for further evaluation, possible ductal sweep, as well as a stent placement. This will be evaluated during his upper endoscopy with further recommendations at that time. Thank you for this consult. ROMEO SIMENTAL APRN FOR MD ASHLEY DUONG/modl /[id number] d: 10/31/16 1322 t: 11/05/16 1745, CONSULTATION REPORT
--- NOTE | ~2016-10-30 | HP ---
PATIENT'S NAME: CHUY MCCLELLAN [facility] AGE: 81 Y [address] ROOM: [address] [address] [facility] AD[facility] DATE: 10/30/2016 History & Physical DISCHARGE DATE: FAMILY PHYSICIAN: PHYSICIAN, UNKNOWN ATTENDING PHYSICIAN: CASIE IYER DATE OF SERVICE: CHIEF COMPLAINT: Acute GI bleed. HISTORY OF PRESENT ILLNESS: This is an 81-year-old male with history of paroxysmal atrial fibrillation, on Xarelto, recent admission for acute gallstone pancreatitis, status post cholecystectomy and ERCP for possible stone extraction, presents from [facility] after he presented there yesterday with complaints of abdominal pain and coffee-grounds emesis. The patient is on Xarelto for atrial fibrillation, and his last dose was about 40 hours from now. At presentation at [facility], the patient appeared hemodynamically stable. Blood count: Hemoglobin was 13 which is what is baseline for him; however, the following morning, the patient was noted to have 2 episodes of bright red bloody bowel movements and was subsequently transferred over here. The patient, upon arrival, did have one more large bloody bowel movement. However, he continues to be hemodynamically stable. Last hemoglobin this morning was 10, which is about a 3-point drop from his baseline numbers. The patient, during my evaluation, is doing well. Denies any dizziness, lightheadedness, or chest pain. He is awake, alert, oriented, pleasant, and does not complain of any issues in that regard. However, he does report diffuse abdominal pain, generalized. He does mention some nausea as well. Did not have anymore hematemesis or iiwrql-skykulr-ikzu emesis since first episode yesterday morning. The patient otherwise denies any dysuria, frequency of urination, fever, chills, cough, or shortness of breath. PAST MEDICAL HISTORY: 1. Paroxysmal atrial fibrillation, on Xarelto. 2. Chronic diastolic CHF. 3. Hypertension. 4. Hyperlipidemia. 5. CKD, stage 3. 6. History of TIAs. FAMILY HISTORY: The patient has a mother who has Hodgkin disease. Sister with a history of uterine cancer, and throat cancer in father. PATIENT'S NAME: CHUY MCCLELLAN [facility] AGE: 81 Y [address] ROOM: [id number] [place], [place] [address] [facility] AD[facility] DATE: 10/30/2016 History & Physical DISCHARGE DATE: FAMILY PHYSICIAN: PHYSICIAN, UNKNOWN ATTENDING PHYSICIAN: CASIE IYER SOCIAL HISTORY: Denies smoking. Denies drinking alcohol. The patient is a gutiérrez. MEDICATIONS: Per MAR. REVIEW OF SYSTEMS: All systems have been reviewed and were negative except as described in the HPI. PHYSICAL EXAMINATION: VITAL SIGNS: Afebrile, heart rate 80s to 90s, blood pressure 170/80, respiratory rate 20, and saturating 95% on room air. GENERAL: The patient is awake, alert, and oriented x3, in no acute distress. HEENT: The patient has moist mucous membranes. Mild conjunctival pallor noted. No scleral icterus. CHEST: Clear to auscultation bilaterally. HEART: S1 and S2, regular rate and rhythm. SKIN: He has a large bruise across his lower abdomen. ABDOMEN: Mildly diffusely tender. Otherwise, soft. Hyperactive bowel sounds. MUSCULOSKELETAL: No joint tenderness, pain, or effusion noted. NEUROLOGIC: Grossly nonfocal. SIGNIFICANT LABS: Hemoglobin of 10.8, about a 2-point drop in the last 24 hours, baseline around 12.5 to 13. Elevated LFTs with AST 482, ALT 542, and alkaline phosphatase 585, these were around normal range during the patient's last hospitalization a few days ago. ASSESSMENT AND PLAN: 1. Acute gastrointestinal bleed. Probably upper gastrointestinal bleed. The patient is hemodynamically stable. We will type and cross and prepare units of packed cells and fresh frozen plasma, and we will give volume resuscitation as needed. The patient is seen by Gastroenterology and is going to have endoscopic evaluation stat. In the meantime, due to the patient's abdominal pain, we will get a stat CT scan of the abdomen to evaluate as well. 2. Acute blood loss anemia. This is to be managed as above. 3. Long-term anticoagulation with Xarelto. We will hold all blood thinners. Last Xarelto was given about 40 hours prior to presentation here. 4. Paroxysmal atrial fibrillation with history of transient ischemic attacks. We will reevaluate when to safely resume anticoagulation after bleeding is controlled. 5. Transaminitis. LFTs raise pattern suggestive of cholestasis. The PATIENT'S NAME: CHUY MCCLELLAN [facility] AGE: 81 Y [address] ROOM: [place] [address] [facility] DATE: 10/30/2016 History & Physical DISCHARGE DATE: FAMILY PHYSICIAN: PHYSICIAN, UNKNOWN ATTENDING PHYSICIAN: CASIE IYER patient did have an ERCP done with sphincterotomy just recently without significant evaluation. We will monitor LFTs and further image with MRCP pending Gastroenterology evaluation. 6. Chronic diastolic congestive heart failure. We will hold all diuretics at this time and monitor. 7. Deep venous thrombosis prophylaxis. We will use SCDs. MD MAGGIE HERNANDEZ/regino /[id number] D: 647 T: 429 HISTORY & PHYSICAL
--- NOTE | ~2016-10-30 | DS ---
PATIENT'S NAME: CHUY MCCLELLAN [facility] AGE: 81 Y [address] ROOM: [place] [address] LOCATION: GPCU ADMIT DATE: 10/30/2016 Discharge Summary DISCHARGE DATE: 11/03/2016 FAMILY PHYSICIAN: Hasmukh Strong MD ATTENDING PHYSICIAN: Taiwo Tavarez PRIMARY DIAGNOSES: 1. Gastrointestinal hemorrhage. 2. Acute blood loss anemia. 3. Elevated transaminases. 4. Chronic diastolic congestive heart failure. 5. Severe pulmonary hypertension. 6. Obstructive sleep apnea. PRINCIPAL PROCEDURE DONE FOR THE PATIENT: includes ERCP and stent placement by Dr. Pineda. EGD and colonoscopy by Dr. Pineda. Transfusion 1 unit of PRBC. LABORATORY DATA: On admission, H and H 10.4/31.7, prior to discharge 9.0/27.4. WBC on admission was 12.1, prior to discharge was 11.0, creatinine on admission was 1.1, prior to discharge was 1.3. Sodium was stable throughout hospital stay, bicarb was stable throughout hospital stay at 26 upon discharge, potassium was also stable throughout the hospital stay at 3.7 upon discharge, BUN was stable, AST on admission was 296, highest level obtained was 725, prior to discharge was 21, ALT on admission was 496, highest level obtained was 745, prior to discharge was 244, alk phos was 606 on admission, highest level obtained was 915, prior to discharge was 444, total bili on admission was 0.8, highest level obtained was 1.3, prior to discharge was 0.5, magnesium was stable throughout the hospital stay. Albumin on admission was 2.7, prior to discharge was 2.6. RADIOLOGY: CT of abdomen, new moderate-sized right pleural effusion with right lower lobe atelectasis, small left pleural effusion. HOSPITAL COURSE: For history of present illness, please take a look at the H and P, which was done by Dr. Tavarez. The patient was admitted to Progressive Care Unit, had a GI consult for the gastrointestinal bleed. H and H were monitored closely. Given the elevation in the patient's transaminases and given the diagnoses of cholelithiasis on his last admission during which he had a laparoscopic cholecystectomy done, contact acid plant operator felt probably this may be elevation in his transaminases as well as his alkaline phosphate may be secondary to possibly cholestasis; so, the patient was taken into the suite, had an EGD done, which did not show any source of GI bleed and also had an ERCP done with stent placement. Following this, his H and H remained relatively stable. By the next day, the patient had a colonoscopy done, which still did not show any source of bleeding; however, squirts of blood was seen PATIENT'S NAME: CHUY MCCLELLAN [facility] AGE: 81 Y [address] ROOM: [id number] [place], [place] [address] LOCATION: GPCU ADMIT DATE: 10/30/2016 Discharge Summary DISCHARGE DATE: 11/03/2016 FAMILY PHYSICIAN: Hasmukh Strong MD ATTENDING PHYSICIAN: Taiwo Tavarez in the upper part of the colon, which the colonoscopy could not reach. Thereafter, the patient was monitored, was still having the maroon-colored stool. His H and H were monitored and he was subsequently transfused with 1 unit of blood when his H and H had dropped to like 8 to help push it back close to his admission H and H of 10. So, prior to discharge, his H and H was 9.0 after transfusion with 1 unit of blood. By the next day of his hospital stay, the patient was ambulating relatively well on the hallway without support, he was also tested for whether he would require oxygen on exertion given his severe pulmonary hypertension on his echo; however, the patient's saturation remained above 90% during exertion. So, on the day of his discharge, his vital signs were stable, and the patient was discharged home. He was told per GI he needs to hold off on his Xarelto for the next 1 week after which he could restart. The patient is to follow up with his PCP who is to recheck his H and H on visit, he is also to follow up in GI Clinic in the next 2 weeks, and ERCP in 1 month. MEDICATION ON DISCHARGE: 1. Metoprolol 25 mg p.o. twice daily. 2. Aspirin 81 mg p.o. daily. 3. Norvasc 5 mg p.o. daily, new medication. 4. Digoxin 125 mcg p.o. daily. 5. Lasix 20 mg p.o. daily. 6. Lindsay 5/325 1 tablet p.o. q.6 h. p.r.n. 7. Bromelain 1 g p.o. 3 times daily. 8. Cozaar 500 mg p.o. daily. 9. Claritin 10 mg p.o. daily. 10. Multivitamin 1 tablet p.o. 3 times daily. 11. Nasonex spray 1 spray in nose everyday. 12. Potassium 99 mg p.o. daily. 13. Lactobacillus 1 capsule p.o. daily. 14. [place] oil 1 g p.o. daily. 15. Vitamin B complex 1 tablet p.o. 3 times daily. 16. Vitamin D3 5000 units p.o. daily. 17. Xarelto 20 mg p.o. daily, start on November 09, 2016. Discharge time spent on this patient is approximately 35 minutes, which included discussing discharge planning with the patient and daughter who were present at bedside. MD LEVAR HUYNH/regino PATIENT'S NAME: CHUY MCCLELLAN [facility] AGE: 81 Y [address] ROOM: [place] [address] [facility] AD[facility] DATE: 10/30/2016 Discharge Summary DISCHARGE DATE: 11/03/2016 FAMILY PHYSICIAN: Hasmukh Strong MD ATTENDING PHYSICIAN: Taiwo Tavarez /[id number] d: 11/04/16 0135 t: 11/09/16 1254, DISCHARGE SUMMARY
[~2016-10-30 10:00] MED LIST: ASPIRIN LO-DOSE81 MG PO; BALANCE B-501 EACH PO; BROMELAINS500 MG PO; CLARITIN10 MG PO; COZAAR50 MG PO; LANOXIN (DIGI125 MCG PO; LASIX20 MG PO; LOPRESSOR25 MG PO; NASONEX NASAL S17 GM NOSE; OMNICEF 300MG300 MG PO; POTASSIUM99 M1 PO; PROBIOTIC1 EAC1 PO; PURE TAURINE500 MG PO; SALMON OIL 1,01 EACH PO; THERAGRAN-M1 TAB PO; VITAMIN D35000 UNI1 PO; WHEAT GERM OIL PO; XARELTO20 MG PO
--- NOTE | 2016-10-30 12:21 | NUR ---
PT is 81 y/o male admit for upper GI bleed for hospitalist. GI to consult. Pt only allergy is to plastic tape. Resides at home with his . Hx CVA,MAKAH, sinus drg,afib,htn,murmur,cardioversion,sleep apnea-bipap,arthritis,heartburn, ulcer,urgency/frequency/nocturia. Maloney cath present on arrival from [place] via ambulance. Pt states he had a couple of dk brown emesis on Thursday and 2 dark BM's yesterday. He also was here last week and had a lap kacie and an ERCP with stent placed. PT alert and oriented x3. Plan for EGD today if possible. Daughter at bedside.
[2016-10-30 14:09] LABS: BASOPHIL # 0.1 K/uL (0.0-0.2); BASOPHIL % 0.4 %; EOSINOPHIL # 0.2 K/uL (0.0-0.5); EOSINOPHIL % 1.3 %; HEMATOCRIT 31.7 % (33.0-50.0); HEMOGLOBIN 10.4 g/dL (11.0-16.0); IMMATURE GRANULOCYTE # 0.1 K/uL (0.0-0.3); IMMATURE GRANULOCYTE % 0.5 %; LYMPHOCYTE # 4.2 K/uL (0.8-4.0); LYMPHOCYTE % 35.1 %; MCH 31.1 pg (27.0-34.0); MCHC 32.8 gm/dL (32.0-36.5); MCV 94.9 fl (83.0-98.0); MONOCYTE % 8.6 %; MPV 9.4 fl (9.4-12.4); NEUTROPHIL # (ANC) 6.5 K/uL (1.4-9.0); NEUTROPHIL % 54.1 %; NRBC % 0 /100WBC (0-0.00); RBC 3.34 M/uL (3.50-5.50); RDW-CV 15.1 % (11.9-14.6); WBC 12.1 K/uL (4.0-11.0)
[2016-10-30 14:10] LABS: PLATELET COUNT 244 K/uL (150-450)
[2016-10-30] MEDS ORDERED: NORCO 5-325 TA1 EACH PO (14:11)
[2016-10-30 14:26] LABS: ALBUMIN 2.7 gm/dL (3.5-5.0); AST 296 IU/L (10-40); BLOOD UREA NITROGEN 19 mg/dL (6-24); CALCIUM 8.3 mg/dL (8.5-10.5); CHLORIDE 109 mMol/L (96-110); CO2 23 mMol/L (22-32); CREATININE 1.1 mg/dL (0.6-1.3); MAGNESIUM 2.4 mg/dL (1.8-2.6); SODIUM 143 mMol/L (135-145); TOTAL PROTEIN 6.3 g/dL (6.0-8.4)
[2016-10-30 14:35] LABS: ALK PHOS 606 IU/L (33-138); ALT 496 IU/L (12-78); ESTIMATED GFR (MDRD EQUATION) > 60; TOTAL BILIRUBIN 0.8 mg/dL (0.0-1.5)
[2016-10-30 15:06] LABS: PROTIME 12.6 SECONDS (9.8-11.4)
--- NOTE | 2016-10-30 16:51 | NUR ---
Significant Event: A/OX3, VSS ON ROOM AIR, SBP 160-190, STARTING TO TREND DOWN. IV TO L)AC HAS PROTONIX DRIP @ 10mL/HR, IV TO R)FA IS SALINE LOCKED. PT. GETS UP 1 ASSIST TO BATHROOM, SLIGHTLY UNSTEADY. BRIGHT RED STOOLS X2 SINCE ADMISSION. PT. DOWN FOR EGD & ERCP NOW. HOME MEDS ON CHART NEED TO BE ADDRESSED. [place] INTACT WITH 475mL UOP. DAUGHTER HERE. IV DILAUDID GIVEN @ 1630 FOR ABDOMINAL PAIN. LAP ABAD SITES X4 ARE STERI-STRIPS, NO DRAINAGE, BRUISING TO ABDOMEN & TEJ. ELBOWS, R)BUTTOCK HAS REDNESS BUT BLANCHABLE, VENOUS STAINING TO BLE. Follow up: CONTINUE WITH POC.
--- NOTE | 2016-10-30 19:22 | NUR ---
1914 PT TRANSFERRED TO PCU WITH TRANSPORT TEAM. PT DENIES A [place] C/O PAIN. FAMILY NOT IN WAITING ROOM WHEN CALLED OUT THERE. ASSESSMENTS UNCHANGED
[2016-10-30 19:47] LABS: HEMOGLOBIN 10.4 g/dL (11.0-16.0)
[2016-10-31 00:42] LABS: HEMATOCRIT 33.9 % (33.0-50.0); HEMOGLOBIN 10.7 g/dL (11.0-16.0)
--- NOTE | 2016-10-31 05:41 | NUR ---
Significant Event: A/0X3. FLAT EFFECT. RESTED IN BED ALL OF SHIFT. TURNS SELF. AFEBRILE. VSS ON RA. HOME CPAP AT HS. IV TO L) AC HAS NS @ 100 MLS/H. IV TO R) FA SL. DENIES PAIN. BEEN NPO SINCE 0400. COLONOSCOPY THIS AM. PERMITS PRINTED AND ON CHART. JUST NEED SIGNED. SUPPREP GIVEN. PATIENT HAD 4 XL LIQUID WATERY ALEXEY BLOODY STOOLS. LAST HGB WAS 10.7. NO C/O OF N/V. PATIENT WAS COMPLAINING OF PAIN WITH THE [facility]. GOT AN ORDER TO D/C. PATIENT REFUSED. [facility] STILL IN PLACE AND HAD 800 MLS OUT. Follow up: CONTINUE WITH PLAN OF CARE.
[2016-10-31 06:59] LABS: HEMATOCRIT 31.5 % (33.0-50.0); HEMOGLOBIN 10.2 g/dL (11.0-16.0)
--- NOTE | 2016-10-31 12:01 | NUR ---
Introduced self and role of care management to pt. He lives up in [place] with his and is independent with cares. He states he started having bloody stools and vomit and this brought him in. He states his sets up his meds and he is very compliant with this and also keeping followup appointments. At this time he plans on home when discharge and denies needs or hhc.
--- NOTE | 2016-10-31 16:43 | NUR ---
Significant Event: A/OX3, VSS ON ROOM AIR. PT. GETS UP SBA TO BATHROOM OR CHAIR. COLONSCOPY DONE TODAY WITH NEGATIVE RESULTS. PT. HAD BRIGHT RED STOOL THIS AFTERNOON, DR. JENSEN NOTIFIED. NO COMPLAINTS OF PAIN. BUMEX GIVEN X1 THIS AFTERNOON. SLIV'S TO L)AC & R)FA. [facility] INTACT WITH 1025mL UOP. Follow up: CONTINUE WITH POC.
[2016-10-31 17:20] LABS: HEMATOCRIT 28.1 % (33.0-50.0)
[2016-10-31 18:06] LABS: ALBUMIN 2.8 gm/dL (3.5-5.0); TOTAL BILIRUBIN 1.3 mg/dL (0.0-1.5); TOTAL PROTEIN 6.3 g/dL (6.0-8.4)
[2016-10-31 20:40] LABS: HEMOGLOBIN 8.4 g/dL (11.0-16.0)
[2016-11-01 02:16] LABS: HEMOGLOBIN 8.3 g/dL (11.0-16.0); MCH 30.7 pg (27.0-34.0); MCHC 31.9 gm/dL (32.0-36.5); MCV 96.3 fl (83.0-98.0); MPV 9.9 fl (9.4-12.4); PLATELET COUNT 233 K/uL (150-450); RDW-CV 15.7 % (11.9-14.6); WBC 10.9 K/uL (4.0-11.0)
[2016-11-01 02:33] LABS: ALBUMIN 2.6 gm/dL (3.5-5.0); ANION GAP 12.9 (10.0-19.0); CREATININE 1.3 mg/dL (0.6-1.3); MAGNESIUM 2.3 mg/dL (1.8-2.6); POTASSIUM 3.9 mMol/L (3.7-5.1); TOTAL PROTEIN 5.7 g/dL (6.0-8.4)
[2016-11-01 02:47] LABS: TOTAL BILIRUBIN 0.6 mg/dL (0.0-1.5)
[2016-11-01 04:46] LABS: ABSOLUTE NEUTROPHIL CT (ANC) 4.1 K/uL (1.4-9.0); BANDED NEUTROPHIL # 0.3 K/uL (0.0-0.1); BANDED NEUTROPHILS % 3 %; LYMPHOCYTE # 5.5 K/uL (0.8-4.0); LYMPHOCYTE % 50 %; MONOCYTE # 1.1 K/uL (0.0-1.0); SEGMENTED NEUTROPHIL # 3.8 K/uL (1.4-9.0); SEGMENTED NEUTROPHIL % 35 %
--- NOTE | 2016-11-01 05:15 | NUR ---
Significant Event: Patient is alert/oriented x3. Vital signs are stable. On room air and CPAP at night. Patient had 5 bloody bowel movements. Hemoglobin also dropped down to 8.[address] Gudino notified regarding patient's status and hemoglobin level. H/H checks changed from q.12 hr to q.4hr. Most recent hgb is 8.3. Maloney in place with good UOP. Patient denies any pain. at bedside. Follow up: Continue to monitor hemoglobins!
[2016-11-01 06:21] LABS: HEMATOCRIT 27.1 % (33.0-50.0); HEMOGLOBIN 8.7 g/dL (11.0-16.0)
[2016-11-01 14:44] LABS: HEMATOCRIT 25.5 % (33.0-50.0); HEMOGLOBIN 8.2 g/dL (11.0-16.0)
--- NOTE | 2016-11-01 15:49 | NUR ---
Significant Event: A/OX3, VSS ON ROOM AIR. PT. WALKED IN HALLS TODAY WITH PHYSICAL THERAPY X1, WALKED LATER WITH STAFF. [facility] D/C TODAY @ 1240, PT. HAS VOIDED SINCE. 500mL OUT [facility] BEFORE BEING D/C'D. LAST HGB CHECK @ 1430 WAS 8.2, NEXT H/H DUE @ 0100. POSSIBLE D/C TO HOME IN AM IF HGB REMAINS STABLE. SMALL MAROON COLORED BM'S X6, PT. HASN'T HAD ONE SINCE 1100. SLIV'S TO L)AC & R)FA. NO COMPLAINTS OF PAIN. HERE IN ROOM. LAP ABAD SITES X4 STILL HAVE STERI-STRIPS INTACT, NO DRAINAGE JUST BRUISING TO SITES. Follow up: MONITOR HGB.
[2016-11-02 01:00] LABS: HEMATOCRIT 24.8 % (33.0-50.0)
--- NOTE | 2016-11-02 04:49 | NUR ---
Significant event: A/O x 3. Up with minimal assist. uses urinal with urgency. All vss on ra during the day and home c-pap at noc per home settings. no stools last noc. HGB remained stable at 8.0. Left AC iv DC'd due to leaking. No c/o pain throughout shift. Had 1275 UOP.
[2016-11-02 09:38] LABS: BASOPHIL # 0.1 K/uL (0.0-0.2); BASOPHIL % 0.5 %; EOSINOPHIL # 0.2 K/uL (0.0-0.5); EOSINOPHIL % 2.2 %; HEMATOCRIT 27.1 % (33.0-50.0); HEMOGLOBIN 8.7 g/dL (11.0-16.0); IMMATURE GRANULOCYTE # 0.1 K/uL (0.0-0.3); LYMPHOCYTE # 4.4 K/uL (0.8-4.0); MCH 31.1 pg (27.0-34.0); MCHC 32.1 gm/dL (32.0-36.5); MCV 96.8 fl (83.0-98.0); MONOCYTE # 0.9 K/uL (0.0-1.0); MONOCYTE % 8.6 %; NEUTROPHIL # (ANC) 5.2 K/uL (1.4-9.0); NEUTROPHIL % 47.7 %; NRBC % 0 /100WBC (0-0.00); RDW-CV 15.9 % (11.9-14.6)
[2016-11-02 09:42] LABS: ALBUMIN 2.7 gm/dL (3.5-5.0); ANION GAP 11.9 (10.0-19.0); CALCIUM 8.3 mg/dL (8.5-10.5); CREATININE 1.2 mg/dL (0.6-1.3); POTASSIUM 3.9 mMol/L (3.7-5.1); TOTAL BILIRUBIN 0.5 mg/dL (0.0-1.5); TOTAL PROTEIN 6.2 g/dL (6.0-8.4)
[2016-11-02 10:10] LABS: PLATELET COUNT 255 K/uL (150-450)
--- NOTE | 2016-11-02 16:45 | NUR ---
Significant Event: A/OX3, VSS ON ROOM AIR. PT. WALKED IN HALLS SEVERAL TIMES TODAY, DID WALKING O2 SATS TEST WITH RT DOESN'T QUALIFY FOR HOME O2. DAUGHTER HERE TODAY. PT. VOIDS FINE IN URINAL. MODERATE BM TODAY X1, DARK BROWN NO BLOOD NOTED PER AID. SLIV TO R)FA. 1 UNIT OF BLOOD GIVEN TODAY, BUMEX X1 POST. LAST HGB CHECK THIS AM WAS 8.7, LABS IN AM. POSSIBLE D/C TO HOME TOMORROW. DR. GOTTLIEB FILLED OUT MEDS & TO CHART. DAUGHTER HERE TODAY & WILL TAKE PT. BACK TO IF DISMISSED. Follow up: D/C TO HOME IN AM.
[2016-11-03 03:29] LABS: HEMATOCRIT 27.4 % (33.0-50.0)
[2016-11-03 03:46] LABS: ALBUMIN 2.6 gm/dL (3.5-5.0); ANION GAP 11.7 (10.0-19.0); CALCIUM 8.4 mg/dL (8.5-10.5); CREATININE 1.3 mg/dL (0.6-1.3); MAGNESIUM 2.3 mg/dL (1.8-2.6); POTASSIUM 3.7 mMol/L (3.7-5.1); TOTAL BILIRUBIN 0.5 mg/dL (0.0-1.5); TOTAL PROTEIN 5.8 g/dL (6.0-8.4)
--- NOTE | 2016-11-03 04:19 | NUR ---
Significant event: A/O x 3. Up with SBA. VSS on RA during the day on c-pap at night. No c/o pain. HGB was 9.0 this morning up from 8.7 yesterday after receiving 1 unit PRBC. Plan is to D/C Home today.
[2016-11-03] MEDS ORDERED: NORVASC5 MG PO (11:10)
--- NOTE | 2016-11-03 14:38 | NUR ---
d-dr ord pt dc i-stab sites normal, no c/o pain, pt up bathroom ok, had small bm in toilet paper couldn't see, hgb stable, dr teaching done on all meds with new one explained and rx given, appts set up, info given on pt ercp and appt set, r-pt and daughter state all understanding p-ta took pt out per w/c to car
[2016-11-26] MEDS ORDERED: CHOLESTYRAMINE P4 GM PO (09:55)
[2016-11-26] MEDS ORDERED: BIPAP INH (10:45)
== END 2016-11-03 13:30 | disposition disaster alternative care site (69) | DRG 377 ==
LOC: GPCU 11:48
PROVIDERS: Hospitalist; Internal Medicine; Internal Medicine Gastroenterology; ADMIT Internal Medicine
PROC: 0DJ08ZZ Inspection of Upper Intestinal Tract, Via Natural or Artificial Opening Endoscopic (ICD-10-PCS; principal; 2016-10-30)
PROC: 0F798DZ Dilation of Common Bile Duct with Intraluminal Device, Via Natural or Artificial Opening Endoscopic (ICD-10-PCS; principal; 2016-10-30)
PROC: 0FC98ZZ Extirpation of Matter from Common Bile Duct, Via Natural or Artificial Opening Endoscopic (ICD-10-PCS; principal; 2016-10-30)
PROC: 0DJD8ZZ Inspection of Lower Intestinal Tract, Via Natural or Artificial Opening Endoscopic (ICD-10-PCS; 2016-10-31)
DX: K92.2 Gastrointestinal hemorrhage, unspecified (principal); K44.1 Diaphragmatic hernia with gangrene; K83.1 Obstruction of bile duct; I27.2 Other secondary pulmonary hypertension; I50.32 Chronic diastolic (congestive) heart failure; I13.0 Hypertensive heart and chronic kidney disease with heart failure and stage 1 through stage 4 chronic kidney disease, or unspecified chronic kidney disease; D62 Acute posthemorrhagic anemia; G47.33 Obstructive sleep apnea (adult) (pediatric); I48.0 Paroxysmal atrial fibrillation; N18.3 Chronic kidney disease, stage 3 (moderate); K64.4 Residual hemorrhoidal skin tags; K64.8 Other hemorrhoids; K57.30 Diverticulosis of large intestine without perforation or abscess without bleeding; R74.0 Nonspecific elevation of levels of transaminase and lactic acid dehydrogenase [LDH]
CPT/HCPCS: C9113; J0744; J1170; J7030; J7040; J7050; P9016

== ENCOUNTER → 2016-12-02 | Day surgery (SDC) | payer MEDICARE, BC ==
[~2016-12-02] VITALS: Ht 181.6 cm; Wt 94.6 kg
[~2016-12-02] MED LIST changes: +BIPAP INH; +CHOLESTYRAMINE P4 GM PO; +NORCO 5-325 TA1 EACH PO; +NORVASC5 MG PO
== END ==
LOC: GPOC 11-26 11:00 → GEND 06:45
PROC: 0FPB8DZ Removal of Intraluminal Device from Hepatobiliary Duct, Via Natural or Artificial Opening Endoscopic (ICD-10-PCS; principal; 2016-12-02)
DX: K83.8 Other specified diseases of biliary tract (principal); K44.9 Diaphragmatic hernia without obstruction or gangrene; M19.90 Unspecified osteoarthritis, unspecified site; I10 Essential (primary) hypertension; E11.9 Type 2 diabetes mellitus without complications; G47.33 Obstructive sleep apnea (adult) (pediatric); R74.0 Nonspecific elevation of levels of transaminase and lactic acid dehydrogenase [LDH]; I27.2 Other secondary pulmonary hypertension; Z98.890 Other specified postprocedural states; Z79.82 Long term (current) use of aspirin; Z79.899 Other long term (current) drug therapy
CPT/HCPCS: J2001; J7030